=== PATIENT | female | born 1945 | race Caucasian/White ===

== ENCOUNTER 2019-08-16 13:17 | Emergency (ER) | payer MEDICARE ==
[~2019-08-16] VITALS: Ht 165.1 cm; Wt 67.0 kg
[2019-08-16 13:39] VITALS: BP 136/70
--- NOTE | 2019-08-16 13:49 | PHYS DOC ---
Adult General Chief Complaint Chief Complaint: DIFFICULTY SWALLOWING HPI HPI Patient is a 74 year old female who was brought here from a restaurant by EMS for evaluation after she was choking on her food. Patient was eating salmon at the restaurant. Patient felt like it stuck in the end of her throat. She vomited everything she ate and then she felt much better afterward. Patient denied any nausea or vomiting, no abdominal pain, no chest pain, no shortness of air. Patient had an episode like this in the past. She has history of ACID REFLUX DISEASE. aLL OTHER ros IS NEGATIVE UNLESS OTHERWISE NOTED IN hpi Review of Systems Review of Systems See above Physical Exam Physical Exam See above Constitutional: Well developed, well nourished, no acute distress, non-toxic appearance. [] HENT: Normocephalic, atraumatic, bilateral external ears normal, oropharynx moist, no oral exudates, nose normal. [] Eyes: PERRLA, EOMI, conjunctiva normal, no discharge. [] Neck: Normal range of motion, no tenderness, supple, no stridor. [] Cardiovascular:Heart rate regular rhythm, no murmur [] Lungs & Thorax: Bilateral breath sounds clear to auscultation [] Abdomen: Bowel sounds normal, soft, no tenderness, no masses, no pulsatile mass es. [] Skin: Warm, dry, no erythema, no rash. [] Back: No tenderness, no CVA tenderness. [] Extremities: No tenderness, no cyanosis, no clubbing, ROM intact, no edema. [] Neurologic: Alert and oriented X 3, normal motor function, normal sensory function, no focal deficits noted. [] Psychologic: Affect normal, judgement normal, mood normal. [] Current Patient Data Vital Signs Vital Signs Date Time Temp Pulse Resp B/P (MAP) Pulse Ox O2 Delivery O2 Flow Rate FiO2 08/16/19 13:39 97.9 73 15 136/70 (92) 97 Room Air 97.9 EKG EKG [] Radiology/Procedures Radiology/Procedures [] Course & Med Decision Making Course & Med Decision Making Pertinent Labs and Imaging studies reviewed. (See chart for details) Patient was able to drink a bottle of Sprite and kept it down without a problem. Patient will be discharged home, she will follow with her family doctor for referral to GI specialist for upper GI evaluation. She was amenable to plan of care. Dragon Disclaimer Dragon Disclaimer This electronic medical record was generated, in whole or in part, using a voice recognition dictation system. Departure Departure Impression: Primary Impression: Esophageal spasm Disposition: 01 HOME, SELF-CARE Condition: IMPROVED Referrals: ONEIDA BALDWIN MD PLEASE FOLLOW UP WITH THIS GI DOCTOR FOR FURTHER EVALUATION AND TREATMENT NEXT WEEK. Patient Instructions: Esophageal Spasm Additional Instructions: Thank you for visiting our Emergency Department. We appreciate you trusting us with your care. If any additional problems come up don't hesitate to return to visit us. Please follow up with your primary care provider so they can plan additional care if needed and know about the problem that you had. If symptoms worsen come back to the Emergency Department. Any concerning symptoms that start such as chest pain, shortness of air, weakness or numbness on one side of the body, running high fevers or any other concerning symptoms return to the ER. ANASTASIA OCONNOR DO Aug 16, 2019 13:49
== END 2019-08-16 14:26 | disposition home or self-care (01) ==
LOC: ER 13:17
DX: K22.4 Dyskinesia of esophagus (principal); K21.9 Gastro-esophageal reflux disease without esophagitis
CPT/HCPCS: 99283